=== PATIENT | female | born 1940 | race Caucasian/White ===

== ENCOUNTER 2018-05-10 15:41 | Observation (INO) ==
[2018-05-10] MEDS ORDERED: Sod Chloride 0.9% Inj 1,000 ML IV.SIG ONE (16:16)
[2018-05-10 16:38] LABS: Baso # (Auto) 0.4 th/mm3 (0.0-0.2); Eos % (Auto) 0.2 % (0.0-4.0); Hematocrit 34.3 % (35.0-46.0); Hemoglobin 11.8 gm/dL (11.6-15.3); Lymph # (Auto) 0.4 th/mm3 (1.0-4.8); Lymph % (Auto) 3.7 % (9.0-44.0); Mean Corpuscular HGB Conc 34.5 % (32.0-36.0); Mean Corpuscular Hemoglobin 30.6 pg (27.0-34.0); Mean Corpuscular Volume 88.8 fL (80.0-100.0); Mean Platelet Volume 7.7 fL (7.0-11.0); Mono # (Auto) 0.5 th/mm3 (0.0-0.9); Mono % (Auto) 4.5 % (0.0-8.0); Neut # (Auto) 10.5 th/mm3 (1.8-7.7); Neut % (Auto) 88.6 % (16.0-70.0); Platelet Count 318 th/mm3 (150-450); Red Blood Count 3.86 mil/mm3 (4.00-5.30); Red Cell Distribution Width 14.4 % (11.6-17.2); White Blood Count 11.8 th/mm3 (4.0-11.0)
--- NOTE | 2018-05-10 16:41 | XR ---
EXAM DATE: 05/10/2018 4:29 PM EDT AGE/SEX: 77 years / Female INDICATIONS: Chest discomfort, nausea, vomiting starting today CLINICAL DATA: This is the patient's initial encounter. Patient reports that signs and symptoms have been present for 1 day and indicates a pain score of 0/10. MEDICAL/SURGICAL HISTORY: None. None. COMPARISON: No prior exams available for comparison. FINDINGS: There is patchy airspace disease in left lung and right lung base, most characteristic of bronchopneu monia. Short-term follow-up recommended to exclude other etiologies. No effusion. No pneumothorax. He art size normal. CONCLUSION: Patchy bilateral airspace disease most characteristic of bronchopneumonia. Electronically signed by: Maxime Tuttle MD 05/10/2018 4:39 PM EDT
[2018-05-10 16:47] LABS: Chloride 106 meq/L (98-107); Potassium 3.5 meq/L (3.5-5.1); Sodium 139 meq/L (136-145)
[2018-05-10 16:50] LABS: Albumin 3.4 g/dL (3.4-5.0); Anion Gap 8 meq/L (5-15); Calcium 8.7 mg/dL (8.5-10.1); Glucose,Random 127 mg/dL (74-106)
[2018-05-10 16:51] LABS: Blood Urea Nitrogen 13 mg/dL (7-18)
[2018-05-10 16:53] LABS: Alanine Aminotransferase 38 U/L (10-53)
[2018-05-10 16:54] LABS: Aspartate Aminotransferase 35 U/L (15-37); Glomerular Filtration Rate 74 mL/min (>89)
[2018-05-10 16:55] LABS: Total Protein 6.6 g/dL (6.4-8.2)
[2018-05-10 16:56] LABS: Alkaline Phosphatase 46 U/L (45-117)
--- NOTE | 2018-05-10 17:10 | ED ---
HPI General Chief complaint: Nausea/Vomiting/Diarrhea Stated complaint: N/V,Shaking Source: patient Mode of arrival: ambulatory Limitations: no limitations History of Present Illness HPI Narrative: 77 yo F patient arrives due to nausea vomiting and diarrhea for approximately 4-5 hours. At least 6 episodes of vomiting reported. Diarrhea is also along with facet episodes of diarrhea. No fever. No dyspnea. The patient underwent a colonoscopy earlier today by Dr. Abreu. Patient was discharged home feeling well. No bloody emesis or bloody diarrhea. There is no abdominal pain at the time of ED evaluation. Patient did have some left upper quadrant discomfort that resolved earlier in the day. Related Data Home Medications Medication Instructions Recorded Confirmed pantoprazole 05/10/18 tramadol 50 mg PO Q6H 05/10/18 05/10/18 Allergies Allergy/AdvReac Type Severity Reaction Status Date / Time acetaminophen [From Percocet] AdvReac Vomiting Verified 05/10/18 15:51 hydrocodone AdvReac Vomiting Verified 05/10/18 15:51 oxycodone [From Percocet] AdvReac Vomiting Verified 05/10/18 15:51 Review of Systems ROS: all other systems reviewed are negative [facility] Medical History Medical History GERD (gastroesophageal reflux disease) (Acute) Surgical History Surgical History H/O hernia repair (Acute) H/O total knee replacement (Acute) Social History Social History Substance History: No History of Abuse Smoking Status: Former smoker How Often Do You Have a Drink Containing Alcohol: 4 or more times a week Recent Travel in [facility] within the Last 8 Weeks: No Recent Out of Country Travel within the Last 8 Weeks: No Exam Narrative Exam Narrative: GENERAL: 77-year-old female, no acute distress, pleasant, speaks full sentences, resting comfortably in bed SKIN: Focused skin assessment warm/dry. HEAD: Atraumatic. Normocephalic. EYES: Pupils equal and round. No scleral icterus. No injection or drainage. ENT: No nasal bleeding or discharge. Mucous membranes pink and moist. NECK: Trachea midline. No JVD. CARDIOVASCULAR: Mild tachycardia with a rate of about 100. Regular rhythm. RESPIRATORY: Lungs are clear on my exam. There is no significant dyspnea or tachypnea. GASTROINTESTINAL: Soft. There is no focus of tenderness. No distention. MUSCULOSKELETAL: No obvious deformities. No clubbing. No cyanosis. No edema. NEUROLOGICAL: Awake and alert. No obvious cranial nerve deficits. Motor grossly within normal limits. Normal speech. PSYCHIATRIC: Appropriate mood and affect; insight and judgment normal. Course Reevaluation(s) Reevaluation #1: Patient resting comfortably. We discussed the results of the workup. Rocephin azithromycin started. IV fluids started. Tylenol was ordered. The patient reports history of vomiting from taking Percocet which has Tylenol and oxycodone in it. I believe the vomiting was due to opioids and in any case is not an allergy. Vomiting is a side effect. Case also discussed with Dr. Kyle lopez for the GI service. Reportedly the patient may have had an aspiration event during the procedure. Call placed to the hospital service at [phone]. Time: 18:03 Initial Documented Vital Signs Temperature 101.7 F H 05/10/18 15:43 Pulse Rate 94 H 05/10/18 15:43 Respiratory Rate 20 05/10/18 15:43 Blood Pressure 108/59 L 05/10/18 15:43 Pulse Oximetry 95 05/10/18 15:43 Last Documented Vital Signs Temperature 101.1 F H 05/10/18 18:32 Pulse Rate 107 H 05/10/18 18:32 Respiratory Rate 20 05/10/18 18:32 Blood Pressure 87/54 L 05/10/18 18:32 Pulse Oximetry 92 L 05/10/18 18:32 Medical Decision Making MDM Narrative Medical decision making narrative: Patient has patchy consolidation in both lungs as well as tachycardia and fever. Rocephin azithromycin started. Concern for aspiration pneumonia after case discussed with Dr. Abreu. d/w Dr Wallace for [facility]. Pt had one BP measurement of 87/54. She reports 90/60 is not unusual for her. Repeat was 100/60. Pt is well appearing, sitting upright readying, asking for dinner. Medical Screen Exam Complete: Yes Emergency Medical Condition: Yes Lab Data Result diagrams: 05/10/18 16:35 05/10/18 16:35 Lab Results 05/10/18 05/10/18 05/10/18 Range/Units 16:35 16:35 17:20 CBC w Diff Auto diff final WBC 11.8 H (4.0-11.0) th/mm3 RBC 3.86 L (4.00-5.30) mil/mm3 Hgb 11.8 (11.6-15.3) gm/dL Hct 34.3 L (35.0-46.0) % MCV 88.8 (80.0-100.0) fL MCH 30.6 (27.0-34.0) pg MCHC 34.5 (32.0-36.0) % RDW 14.4 (11.6-17.2) % Plt Count 318 (150-450) th/mm3 MPV 7.7 (7.0-11.0) fL Neut % (Auto) 88.6 H (16.0-70.0) % Lymph % (Auto) 3.7 L (9.0-44.0) % [place] % (Auto) 4.5 (0.0-8.0) % Eos % (Auto) 0.2 (0.0-4.0) % Baso % (Auto) 3.0 H (0.0-2.0) % Neut # (Auto) 10.5 H (1.8-7.7) th/mm3 Lymph # (Auto) 0.4 L (1.0-4.8) th/mm3 [place] # (Auto) 0.5 (0.0-0.9) th/mm3 Eos # (Auto) 0.0 (0.0-0.4) th/mm3 Baso # (Auto) 0.4 H (0.0-0.2) th/mm3 WBC Differential . Differential Comment . Sodium 139 (136-145) meq/L Potassium 3.5 (3.5-5.1) meq/L Chloride 106 (98-107) meq/L Carbon Dioxide 25.0 (21.0-32.0) meq/L Anion Gap 8 (5-15) meq/L BUN 13 (7-18) mg/dL Creatinine 0.76 (0.50-1.00) mg/dL Estimated GFR 74 L (>89) mL/min Random Glucose 127 H (74-106) mg/dL Lactic Acid 0.8 (0.4-2.0) mmol/L Calcium 8.7 (8.5-10.1) mg/dL Magnesium (1.5-2.5) mg/dL Total Bilirubin 0.4 (0.2-1.0) mg/dL AST 35 (15-37) U/L ALT 38 (10-53) U/L Alkaline Phosphatase 46 (45-117) U/L Total Protein 6.6 (6.4-8.2) g/dL Albumin 3.4 (3.4-5.0) g/dL 05/10/18 Range/Units 17:25 CBC w Diff WBC (4.0-11.0) th/mm3 RBC (4.00-5.30) mil/mm3 Hgb (11.6-15.3) gm/dL Hct (35.0-46.0) % MCV (80.0-100.0) fL MCH (27.0-34.0) pg MCHC (32.0-36.0) % RDW (11.6-17.2) % Plt Count (150-450) th/mm3 MPV (7.0-11.0) fL Neut % (Auto) (16.0-70.0) % Lymph % (Auto) (9.0-44.0) % [place] % (Auto) (0.0-8.0) % Eos % (Auto) (0.0-4.0) % Baso % (Auto) (0.0-2.0) % Neut # (Auto) (1.8-7.7) th/mm3 Lymph # (Auto) (1.0-4.8) th/mm3 [place] # (Auto) (0.0-0.9) th/mm3 Eos # (Auto) (0.0-0.4) th/mm3 Baso # (Auto) (0.0-0.2) th/mm3 WBC Differential Differential Comment Sodium (136-145) meq/L Potassium (3.5-5.1) meq/L Chloride (98-107) meq/L Carbon Dioxide (21.0-32.0) meq/L Anion Gap (5-15) meq/L BUN (7-18) mg/dL Creatinine (0.50-1.00) mg/dL Estimated GFR (>89) mL/min Random Glucose (74-106) mg/dL Lactic Acid (0.4-2.0) mmol/L Calcium (8.5-10.1) mg/dL Magnesium 2.0 (1.5-2.5) mg/dL Total Bilirubin (0.2-1.0) mg/dL AST (15-37) U/L ALT (10-53) U/L Alkaline Phosphatase (45-117) U/L Total Protein (6.4-8.2) g/dL Albumin (3.4-5.0) g/dL Imaging Data Radiologist's impression: Chest X-Ray 05/10/18 16:16 CONCLUSION: Patchy bilateral airspace disease most characteristic of bronchopneumonia. Discharge Plan Discharge Disposition Patient Disposition: 30 Still Patient Physicians Team ED Provider: Toni Malone Primary Care Provider: Summer Martinez Attending Provider: Toni Wallace Discharge Interventions Interventions: Vital Signs Last Done: 05/10/18 18:32 Status ED Status: Admitted Observation Patient
[2018-05-10] MEDS ORDERED: Acetaminophen 325 MG Tablet PO ONE (17:11)
[2018-05-10] MEDS ORDERED: Azithromycin Inj 500 MG in Sodium Chlor 0.9% Inj 250 ML IV.SIG ONE (17:11)
[2018-05-10] MEDS ORDERED: Sod Chloride 0.9% Inj 1,000 ML IV.SIG SCH (17:15)
[2018-05-10] MEDS ORDERED: Sod Chloride 0.9% Inj 800 ML IV.SIG SCH (17:15)
[2018-05-10] MEDS ORDERED: Acetaminophen 325 MG Tablet PO PRN (18:42)
[2018-05-10] MEDS: Enoxaparin Inj 40 MG/0.4 ML Syringe SQ SCH (20:13)
[2018-05-10] MEDS: Sod Chloride 0.9% Inj 1,000 ML IV.CONT SCH (22:52)
[2018-05-10] MEDS: Ampicillin/Sulbactam Inj 3 GM in Sodium Chloride 0.9% Inj 100 ML IV.SIG SCH (22:52)
[2018-05-11] MEDS: Ampicillin/Sulbactam Inj 3 GM in Sodium Chloride 0.9% Inj 100 ML IV.SIG SCH ×4 (04:28→20:06)
[2018-05-11 06:09] LABS: Bilirubin,Urine Negative (Negative); Clarity,Urine Clear (Clear); Color,Urine Yellow (Yellw/Straw); Glucose,Urine (UA) Negative (Negative); Leukocyte Esterase,Urine Small (Negative); Nitrite,Urine Negative (Negative); PH,Urine 5.5 (5.0-8.5); Specific Gravity,Urine Greater/Equal 1.030 (1.002-1.035); Urobilinogen,Urine 0.2 mg/dL (Less than 2)
[2018-05-11 06:28] LABS: RBC,Urine 0-3 /hpf (0-3)
[2018-05-11 06:29] LABS: Bacteria,Urine Few /hpf; Squamous Epithelial Cell,Urine 0-5 /hpf (0-5)
[2018-05-11 06:53] LABS: Hematocrit 29.9 % (35.0-46.0); Hemoglobin 9.9 gm/dL (11.6-15.3); Mean Corpuscular HGB Conc 33.2 % (32.0-36.0); Mean Corpuscular Hemoglobin 30.5 pg (27.0-34.0); Mean Corpuscular Volume 91.8 fL (80.0-100.0); Mean Platelet Volume 7.8 fL (7.0-11.0); Platelet Count 266 th/mm3 (150-450); Red Blood Count 3.26 mil/mm3 (4.00-5.30); Red Cell Distribution Width 13.7 % (11.6-17.2); White Blood Count 18.5 th/mm3 (4.0-11.0)
[2018-05-11 07:08] LABS: Potassium 3.3 meq/L (3.5-5.1)
[2018-05-11 07:43] LABS: Calcium 7.8 mg/dL (8.5-10.1); Carbon Dioxide 26.8 meq/L (21.0-32.0)
[2018-05-11] MEDS: Sod Chloride 0.9% Inj 1,000 ML IV.CONT SCH ×3 (07:59→17:13)
[2018-05-11] MEDS ORDERED: MethylPREDNISolone Sod Succinate Inj 125 MG/2 ML Vial IV.PUSH ONE (15:00)
--- NOTE | 2018-05-11 15:06 | ECG ---
Date Performed: 05/11/2018 Time Performed: 14:51:23 PTAGE: 77 years EKG: Sinus rhythm LOW QRS VOLTAGE IN PRECORDIAL LEADS NORMAL ECG NO PREVIOUS TRACING DOCTOR: Raleigh Short Interpretating Date/Time 05/11/2018 15:05:18
--- NOTE | 2018-05-11 16:51 | P.HP ---
History of Present Illness Primary Care Physician: Summer Martinez MD History of Present Illness: 77-year-old femal with history of GERD who underwent an EGD with colonoscopy yesterday. After returning home she rested for a while but then had onset of nausea and vomiting for a few hours. She has a history of sensitivity to sedation with nausea and vomiting typical symptoms upon awakening. After period of nausea and vomiting she developed rigors and dizziness and decided to come to the ER for evaluation. ER workup showed leukocytosis, she was hypotensive, and chest x-ray showed bronchopneumonia. She was deemed to be at risk for aspiration pneumonia versus sepsis. Admitted for treatment. Today she complained of throat pain in the morning but developed chest pain midway through the day. She denies any depression, anxiety or psychiatric history. She denies any easy bruising, bleeding gums or current bruises. Review of Systems All other systems reviewed negative except as stated in HPI PMFSH - History History Provided By: Patient - Medical History Medical History: Medical History (Last Updated 05/10/18 @ 16:07 by Nicol Harden RN) GERD (gastroesophageal reflux disease) - Surgical History Surgical History: Surgical History (Last Updated 05/10/18 @ 16:07 by Nicol Harden RN) H/O hernia repair H/O total knee replacement - Family History Family History: Family History (Last Updated 05/11/18 @ 16:44 by August Wallace MD) Other Hypertension - Tobacco History Second Hand Smoke Exposure: No Tobacco Use In Past 30 Days: No Smoking Status: Former smoker - Alcohol History How Often Do You Have a Drink Containing Alcohol: 4 or more times a week - Substance Use History Substance History: No History of Abuse - Travel History Recent Travel in the [place] Within the Last 8 Weeks: No Recent Travel Out of the Country Within the Last 8 Weeks: No - Immunization History Tetanus Immunization: Unsure Hx Influenza Vaccine This Season: No Medications and Allergies Active Medications: Active Medications Acetaminophen (Tylenol) 650 mg PO Q4H PRN PRN Reason: Temp > 100.4 Al Hydroxide/Mg Hydroxide (Milk Of Magnmaria de jesus Liq) 30 ml PO Q12H PRN PRN Reason: Mild Constipation Enoxaparin Sodium (Lovenox Inj) 40 mg SQ Q24H DANIEL Last Admin: 05/10/18 20:13 Dose: 40 mg Sodium Chloride (Ns Inj) 1,000 mls @ 0 mls/hr IV.SIG .Q0M DANIEL Last Infusion: 05/10/18 20:00 Dose: Infused Sodium Chloride (Ns Inj) 800 mls @ 0 mls/hr IV.SIG .Q0M DANIEL Ampicillin Sodium/Sulbactam (Sodium 3 gm/ Sodium Chloride) 100 mls @ 200 mls/ hr IV.SIG Q6H DANIEL Last Admin: 05/11/18 15:54 Dose: 200 mls/hr Sodium Chloride (Ns Flush) 2 ml IV.FLUSH PRN PRN PRN Reason: FLUSH AFTER USING IV ACCESS Tramadol HCl (Ultram) 50 mg PO Q6H [facility] Last Admin: 05/11/18 15:53 Dose: 50 mg Allergies Allergy/AdvReac Type Severity Reaction Status Date / Time acetaminophen [From Percocet] AdvReac Vomiting Verified 05/10/18 15:51 hydrocodone AdvReac Vomiting Verified 05/10/18 15:51 oxycodone [From Percocet] AdvReac Vomiting Verified 05/10/18 15:51 Home Medications Medication Instructions Recorded Confirmed Type pantoprazole 05/10/18 History tramadol 50 mg PO Q6H 05/10/18 05/10/18 History Exam Vital signs: Vital Signs 05/10/18 18:32 05/10/18 20:00 05/11/18 00:00 Temperature 101.1 F H 97.5 F L 97.7 F Pulse Rate 107 H 101 H 94 H Respiratory Rate 20 20 20 Blood Pressure 87/54 L 86/51 L 87/58 L Pulse Oximetry 92 L 94 L 97 05/11/18 04:00 05/11/18 08:00 05/11/18 09:49 Temperature 96.8 F L 98.4 F Pulse Rate 89 88 Respiratory Rate 20 18 18 Blood Pressure 98/50 L 101/58 L Pulse Oximetry 96 97 05/11/18 12:00 05/11/18 15:47 Temperature 97.1 F L 98.9 F Pulse Rate 84 78 Respiratory Rate 18 18 Blood Pressure 103/55 L 112/72 Pulse Oximetry 96 98 Intake & Output 05/10/18 05/11/18 05/11/18 18:59 06:59 18:59 Intake Total 1100 / 1100 1690 / 1690 1000 / 1000 Balance 1100 / 1100 1690 / 1690 1000 / 1000 Weight 58 kg 58.1 kg Intake: IV 1100 / 1100 1450 / 1450 1000 / 1000 NS Inj 1,000 ML @ 100 mls/hr IV 1000 / 1000 .CONT .Q10H DANIEL Rx#:[id number] Unasyn Inj 3 GM In NS Inj 100 200 / 200 0 / 0 ML @ 200 mls/hr IV.SIG Q6H DANIEL Rx#:[id number] NS Inj 1,000 ML @ Wide Open IV. 1000 / 1000 SIG .Q0M DANIEL Rx#:[id number] Oral 240 / 240 Other: # Voids 1 Date of Last Bowel Movement 05/11/18 Weight On Admission 58.1 kg Narrative: GENERAL: AAOx3, no acute distress, adequate nutrition SKIN: Warm and dry, no rashes. HEAD: Atraumatic. Normocephalic. EYES: Pupils equal, round, reactive to light. No scleral icterus. No injection or drainage. ENT: No nasal bleeding or discharge. Moist mucous membranes. Nonerythematous oropharynx. NECK: Trachea midline. No JVD. Thyroid size within normal limits. CARDIOVASCULAR: Regular rate and rhythm. No murmur, no gallops, no rubs. RESPIRATORY: Clear and equal to auscultation bilaterally. No crackles, no wheezes. No accessory muscle use. GASTROINTESTINAL: Abdomen soft, non-tender, nondistended, normal active bowel sounds. Hepatic and splenic margins not palpable. MUSCULOSKELETAL: Extremities without clubbing or cyanosis. No obvious deformities. No edema. NEUROLOGICAL: Awake and alert. No obvious cranial nerve deficits. Motor grossly within normal limits. No focal deficits. Five out of 5 muscle strength in the arms and legs. Normal speech. PSYCHIATRIC: Appropriate mood and affect; insight and judgment normal. Results - Labs CBC & Chem 7: 05/11/18 06:22 05/11/18 06:22 Labs: Laboratory Results - last 24 hr 05/10/18 05/10/18 05/10/18 16:35 17:20 17:25 WBC RBC Hgb Hct MCV MCH MCHC RDW Plt Count MPV Sodium 139 Potassium 3.5 Chloride 106 Carbon Dioxide 25.0 Anion Gap 8 BUN 13 Creatinine 0.76 Estimated GFR 74 L Random Glucose 127 H Lactic Acid 0.8 Calcium 8.7 Magnesium 2.0 Total Bilirubin 0.4 AST 35 ALT 38 Alkaline Phosphatase 46 Troponin I Total Protein 6.6 Albumin 3.4 Urine Color Urine Clarity Urine pH Ur Specific [place] Urine Protein Urine Glucose (UA) Urine Ketones Urine Occult Blood Urine Nitrate Urine Bilirubin Urine Urobilinogen Ur Leukocyte Esterase Urine RBC Urine WBC Ur Squamous Epith Cells Urine Bacteria Micro UA Comment Urine Culture Comments 05/11/18 05/11/18 05/11/18 05:30 06:22 06:22 WBC 18.5 H D RBC 3.26 L Hgb 9.9 L Hct 29.9 L MCV 91.8 MCH 30.5 MCHC 33.2 RDW 13.7 Plt Count 266 MPV 7.8 Sodium 143 Potassium 3.3 L Chloride 110 H Carbon Dioxide 26.8 Anion Gap 6 BUN 11 Creatinine 0.78 Estimated GFR 72 L Random Glucose 116 H Lactic Acid Calcium 7.8 L D Magnesium Total Bilirubin AST ALT Alkaline Phosphatase Troponin I Total Protein Albumin Urine Color Yellow Urine Clarity Clear Urine pH 5.5 Ur Specific [place] Greater/equal 1.030 Urine Protein Negative Urine Glucose (UA) Negative Urine Ketones Negative Urine Occult Blood Small H Urine Nitrate Negative Urine Bilirubin Negative Urine Urobilinogen 0.2 Ur Leukocyte Esterase Small H Urine RBC 0-3 Urine WBC 9-20 H Ur Squamous Epith Cells 0-5 Urine Bacteria Few H Micro UA Comment Culture indicated Urine Culture Comments Culture indicated 05/11/18 14:47 WBC RBC Hgb Hct MCV MCH MCHC RDW Plt Count MPV Sodium Potassium Chloride Carbon Dioxide Anion Gap BUN Creatinine Estimated GFR Random Glucose Lactic Acid Calcium Magnesium Total Bilirubin AST ALT Alkaline Phosphatase Troponin I Less than 0.02 L Total Protein Albumin Urine Color Urine Clarity Urine pH Ur Specific [place] Urine Protein Urine Glucose (UA) Urine Ketones Urine Occult Blood Urine Nitrate Urine Bilirubin Urine Urobilinogen Ur Leukocyte Esterase Urine RBC Urine WBC Ur Squamous Epith Cells Urine Bacteria Micro UA Comment Urine Culture Comments - Imaging Impressions Chest X-Ray 05/10/18 16:16 CONCLUSION: Patchy bilateral airspace disease most characteristic of bronchopneumonia. Caprini VTE Risk Assessment Caprini VTE Risk Assessment: Moderate/High Risk (score >= 2) Caprini Risk Assessment Model: Point Value = 1 Point Value = 2 Point Value = 3 Point Value = 5 Age 41-60 Minor surgery BMI > 25 kg/m2 Swollen legs Varicose veins or History of unexplained or recurrent spontaneous Oral contraceptives or hormone replacement Sepsis (< 1 month) Serious lung disease, including pneumonia (< 1 month) Abnormal pulmonary function Acute myocardial infarction Congestive heart failure (< 1 month) History of inflammatory bowel disease Medical patient at bed rest Age 61-74 Arthroscopic surgery Major open surgery (> 45 min) Laparoscopic surgery (> 45 min) Malignancy Confined to bed (> 72 hours) Immobilizing plaster cast Central venous access Age >= 75 History of VTE Family history of VTE Factor V Leiden Prothrombin [id number] Lupus anticoagulant Anticardiolipin antibodies Elevated serum homocysteine Heparin-induced thrombocytopenia Other congenital or acquired thrombophilia Stroke (< 1 month) Elective arthroplasty Hip, pelvis, or leg fracture Acute spinal cord injury (< 1 month) Prophylaxis Regimen: Total Risk Factor Score Risk Level Prophylaxis Regimen 0-1 Low Early ambulation 2 Moderate Order ONE of the following: *Sequential Compression Device (SCD) *Heparin 5000 units SQ BID 3-4 Higher Order ONE of the following medications: *Heparin 5000 units SQ TID *Enoxaparin/Lovenox 40 mg SQ daily (WT < 150 kg, CrCl > 30 mL/min) *Enoxaparin/Lovenox 30 mg SQ daily (WT < 150 kg, CrCl > 10-29 mL/min) *Enoxaparin/Lovenox 30 mg SQ BID (WT < 150 kg, CrCl > 30 mL/min) AND/OR *Sequential Compression Device (SCD) 5 or more Highest Order ONE of the following medications: *Heparin 5000 units SQ TID (Preferred with Epidurals) *Enoxaparin/Lovenox 40 mg SQ daily (WT < 150 kg, CrCl > 30 mL/min) *Enoxaparin/Lovenox 30 mg SQ daily (WT < 150 kg, CrCl > 10-29 mL/min) *Enoxaparin/Lovenox 30 mg SQ BID (WT < 150 kg, CrCl > 30 mL/min) AND *Sequential Compression Device (SCD) Assessment and Plan - Plan Bronchopneumonia, aspiration risk Patient placed on Unasyn and swallow therapy for coverage of aspiration risk She is doing well today, no active coughing, no fever Continue Unasyn Follow leukocytosis trend Sepsis risk Hypotensive on admission, consider vasovagal from allergic reaction to anesthesia and dehydration from nausea and vomiting Unasyn cross cover for sepsis risk, patient remains afebrile, pressure stable Chest pain Troponin, EKG ordered Solu-Medrol to treat for tracheitis Protonix to cover for GERD, patient has history of GERD DVT prophylaxis Lovenox
[2018-05-11] MEDS: Enoxaparin Inj 40 MG/0.4 ML Syringe SQ SCH (20:06)
[2018-05-12] MEDS: Ampicillin/Sulbactam Inj 3 GM in Sodium Chloride 0.9% Inj 100 ML IV.SIG SCH ×2 (03:07→08:14)
[2018-05-12 08:22] VITALS: BP 124/56; PULSE 82; RESP 18; TEMP 97.4; O2SAT 95
--- NOTE | 2018-05-12 09:28 | P.DS ---
Date of admission: 05/10/18 18:42 Primary care physician: Summer Martinez MD Brief History from admission: 77-year-old femal with history of GERD who underwent an EGD with colonoscopy yesterday. After returning home she rested for a while but then had onset of nausea and vomiting for a few hours. She has a history of sensitivity to sedation with nausea and vomiting typical symptoms upon awakening. After period of nausea and vomiting she developed rigors and dizziness and decided to come to the ER for evaluation. ER workup showed leukocytosis, she was hypotensive, and chest x-ray showed bronchopneumonia. She was deemed to be at risk for aspiration pneumonia versus sepsis. Admitted for treatment. Today she complained of throat pain in the morning but developed chest pain midway through the day. She denies any depression, anxiety or psychiatric history. She denies any easy bruising, bleeding gums or current bruises. DS: Medications - Discharge Medications Prescriptions: amoxicillin-pot clavulanate [Augmentin] 1 tab PO BID 7 Days #14 tab prednisone [Deltasone] 20 mg PO BID PRN 3 Days #6 tab PRN Reason: Throat or trachea Irritation DS: Summary Hospital Course: 77-year-old female admitted for fevers related to likely aspiration of gastric contents during or after EGD procedure. Chest x-ray in ER revealed bronchopneumonia patient presented with an elevated white blood cell count, fevers, cough, chills. She was given empiric coverage for aspiration pneumonia and sepsis using Unasyn IV. She responded well to therapy, became afebrile. She developed chest pain late yesterday and had a recurrent episode overnight. She does have a history of GERD and was given Protonix. Troponin and EKG were within normal limits and she had a negative stress test a few months ago which makes cardiac causes unlikely. Tracheitis from acid irritation may be a likely cause, but was covered with single dose of Solu-Medrol. She will be given a as needed dose of prednisone when she goes home. At this point she is clinically stable, feels well. She is recommended to take Augmentin for the next week and to follow-up with her primary care provider for evaluation of her lung smalls. If she has fevers she is recommended to come back to the ER or to visit her primary care provider on that same day to obtain further workup such as an updated x-ray. - Time Spent with Patient Total time spent providing and/or coordinating discharge services: Less than 30 minutes - Quality: VTE Deep Vein Thrombosis/Pulmonary Embolism Present on Admission: No Exam Vital signs: Vital Signs 05/11/18 09:49 05/11/18 12:00 05/11/18 15:47 Temperature 97.1 F L 98.9 F Pulse Rate 84 78 Respiratory Rate 18 18 18 Blood Pressure 103/55 L 112/72 Pulse Oximetry 96 98 05/11/18 16:23 05/11/18 20:00 05/12/18 00:00 Temperature 98.2 F 97.2 F L Pulse Rate 86 78 Respiratory Rate 18 20 20 Blood Pressure 119/63 107/57 L Pulse Oximetry 94 L 94 L 05/12/18 08:00 Temperature 97.4 F L Pulse Rate 82 Respiratory Rate 18 Blood Pressure 124/56 L Pulse Oximetry 95 Intake & Output 05/11/18 05/12/18 05/12/18 18:59 06:59 18:59 Intake Total 2730 / 2730 440 / 440 Balance 2730 / 2730 440 / 440 Weight 58.4 kg Intake: IV 1700 / 1700 200 / 200 NS Inj 1,000 ML @ 100 mls/hr IV 1600 / 1600 .CONT .Q10H DANIEL Rx#:[id number] Unasyn Inj 3 GM In NS Inj 100 100 / 100 200 / 200 ML @ 200 mls/hr IV.SIG Q6H DANIEL Rx#:[id number] Oral 1030 / 1030 240 / 240 Other: # Voids 3 3 Date of Last Bowel Movement 05/11/18 # Bowel Movements 0 Results Procedures completed during hospitalization: none Labs on day of discharge: Labs from last 24 hours 05/11/18 14:47 Troponin I Less than 0.02 L Preliminary micro results at discharge 05/10/18 17:25 Aerobic Blood Culture - Preliminary Blood - Peripheral No growth in 1 day Anaerobic Blood Culture - Preliminary No growth in 1 day 05/10/18 17:20 Aerobic Blood Culture - Preliminary Blood - Peripheral No growth in 1 day Anaerobic Blood Culture - Preliminary No growth in 1 day - Impressions ITS Impressions Chest X-Ray 05/10/18 16:16 CONCLUSION: Patchy bilateral airspace disease most characteristic of bronchopneumonia. Discharge Plan - Discharge Disposition Patient Disposition: 01 Discharge Home - Discharge Condition Condition: Good - Discharge Order Discharge Orders: Discharge Order (Routine); Ordered 05/12/18 Ordered By: August Wallace - Physicians Team Primary Care Provider: Summer Martinez Attending Provider: August Wallace
== END 2018-05-12 10:19 | disposition home or self-care (01) ==
LOC: PH3 15:41 → PHED 15:41 → PHEDA 18:39 → INTOOBSV 18:42 → PH3 20:36
PROVIDERS: ADMIT Family Medicine; ATTEND Family Medicine